=== PATIENT | male | born 1955 | race African-American/Black ===

== ENCOUNTER 2017-04-15 14:00 | Emergency (ER) | payer MEDICARE, MEDICAID ==
[2017-04-15 14:07] VITALS: BP 121/73
--- NOTE | 2017-04-15 15:08 | ER Document Report ---
HPI - HPI Patient complains to provider of: right side pain Onset: Other - 3 days Onset/Duration: Persistent Quality of pain: Achy Severity: Moderate Pain Level: 3 - declines pain Context: Patient presents to the emergency department with complaints of right-sided pain for the past 3 days that only hurts when he moves. He reports no pain at rest. Patient denies trauma,injury. He denies fever vomiting diarrhea. He denies shortness of breath. He reports he has not been coughing. Patient denies pain with void. He does report that a few months ago he had the same type of pain and then he started voiding blood and the pain went away. He reports he probably had a kidney stone. He denies history of kidney stones. He reports his grandfather has had kidney stones. Associated Symptoms: None Exacerbated by: Movement Relieved by: Denies Similar symptoms previously: No Recently seen / treated by doctor: No - REPRODUCTIVE Reproductive: DENIES: : - DERM Skin Color: Normal Past Medical History - General Information source: Patient - Social History Smoking Status: Current Every Day Smoker Cigarette use (# per day): Yes Frequency of alcohol use: Occasional Drug Abuse: Marijuana Lives with: Family Family History: Reviewed & Not Pertinent Patient has suicidal ideation: No Patient has homicidal ideation: No - Past Medical History Cardiac Medical History: Reports: Hx Atrial Fibrillation, Hx Hypertension Neurological Medical History: Reports: Hx Cerebrovascular Accident Endocrine Medical History: Reports: Hx Diabetes Mellitus Type 2 Renal/ Medical History: Denies: Hx Peritoneal Dialysis Musculoskeltal Medical History: Reports Hx Arthritis - rheumatoid Psychiatric Medical History: Denies: Hx Depression Past Surgical History: Reports: Hx Orthopedic Surgery - left knee - Immunizations Hx Diphtheria, Pertussis, Tetanus Vaccination: No Hx Pneumococcal Vaccination: 01/15/14 Vertical Provider Document - CONSTITUTIONAL Agree With Documented VS: Yes Exam Limitations: No Limitations General Appearance: WD/WN, No Apparent Distress - nontoxic looking, no respiratory distress, rr even unlabored - INFECTION CONTROL TRAVEL OUTSIDE OF THE [place] IN LAST 30 DAYS: No - HEENT HEENT: Atraumatic, Normocephalic - NECK Neck: Normal Inspection, Supple. negative: Lymphadenopathy-Left, Lymphadenopathy-Right - RESPIRATORY Respiratory: Breath Sounds Normal, No Respiratory Distress O2 Sat by Pulse Oximetry: 98 - CARDIOVASCULAR Cardiovascular: Regular Rate - GI/ABDOMEN Gastrointestinal: Abdomen Soft, Abdomen Non-Tender - BACK Back: CVA Tenderness-Right - MUSCULOSKELETAL/EXTREMETIES Musculoskeletal/Extremeties: [place] - NEURO Level of Consciousness: Awake, Alert, Appropriate Motor/Sensory: No Motor Deficit - DERM Integumentary: Warm, Dry Course - Re-evaluation Re-evalutation: 04/15/17 15:14 Likely it is a muscle strain but will obtain CT to look for stones and urinalysis 04/15/17 16:04 CT negative, noted hematuria urine culture sent. Patient now asking for pain medication. Patient was instructed on his hematuria. He again denies any pain with void. Denies fever vomiting diarrhea. Reports his thigh does not hurt until he moves. Will treat for muscle strain. 04/15/17 upon discharge patient requested narcotic pain medication. He was provided with a prescription for [place]. He was also instructed again on the importance of follow-up with his primary care provider for evaluation of hematuria. He verbalized understanding to all instructions - Vital Signs Vital signs: Temp Pulse Resp BP Pulse Ox 97.9 F 99 18 121/73 98 04/15/17 14:04 04/15/17 14:04 04/15/17 14:04 04/15/17 14:04 04/15/17 14:04 - Diagnostic Test Radiology reviewed: Image reviewed, Reports reviewed - negative for stones Discharge - Discharge Clinical Impression: right side pain Condition: Stable Disposition: HOME, SELF-CARE Instructions: Hematuria ([facility]), Muscle Strain ([facility]), Oral Narcotic Medication ( [facility]) Additional Instructions: *You have been evaluated for right side pain, hematuria *Take medication as indicated for pain *Follow up with your primary care provider within 5 days for recheck your urine for hematuria *Follow up with a urologist *Return to ED for worsening condition, changes, needs *Return to ED if not better in 24 hours Prescriptions: Hydrocodone/Acetaminophen [[place] 5-325 Tablet] 1 each PO QID #15 tablet Referrals: [facility] [Provider Group] - Follow up in 1 week
[2017-04-15 15:39] LABS: APPEARANCE,URINE SLIGHTLY-CLOUDY; BILIRUBIN,URINE NEGATIVE (NEGATIVE); GLUCOSE, URINE NEGATIVE (NEGATIVE); KETONES,URINE NEGATIVE (NEGATIVE); LEUKOCYTE ESTERASE,URINE LARGE (NEGATIVE); NITRITE,URINE NEGATIVE (NEGATIVE); PROTEIN,URINE NEGATIVE (NEGATIVE); UROBILINOGEN,URINE NEGATIVE mg/dL (<2.0)
[2017-04-15] MEDS ORDERED: ACETAMINOPHEN 325 MG TABLET PO ONE (15:56)
== END 2017-04-15 16:09 | disposition home or self-care (01) ==
LOC: ER 14:00
DX: T14.8 Other injury of unspecified body region (principal); X58.XXXA Exposure to other specified factors, initial encounter; R31.9 Hematuria, unspecified; E11.9 Type 2 diabetes mellitus without complications; M79.651 Pain in right thigh; I10 Essential (primary) hypertension; F17.210 Nicotine dependence, cigarettes, uncomplicated; Z84.1 Family history of disorders of kidney and ureter; Z86.73 Personal history of transient ischemic attack (TIA), and cerebral infarction without residual deficits
CPT/HCPCS: 76380; 81001; 87086; 99284